=== PATIENT | male | born 1965 | race Caucasian/White ===

== ENCOUNTER → 2019-04-02 | Day surgery (SDC) | payer BC ==
[2019-03-31 11:38] LABS: BASOPHILS % 0.6 % (0.0-1.0); EOSINOPHILS # (AUTO) 0.1 (0.0-0.4); HEMATOCRIT 40.3 % (38.2-49.6); HEMOGLOBIN 12.6 g/dL (14.0-18.0); LYMPHOCYTES # (AUTO) 2.5 (1.0-3.2); LYMPHOCYTES % 34.3 % (18.0-39.1); MEAN CORPUSCULAR HEMOGLOBIN 23.1 pg (28-32); MEAN CORPUSCULAR HGB CONC 31.3 g/dL (31-35); MEAN CORPUSCULAR VOLUME 73.8 fL (81-99); MONOCYTES # (AUTO) 0.7 (0.2-0.8); MONOCYTES % 9.5 % (4.4-11.3); NEUTROPHILS # (AUTO) 3.9 (2.1-6.9); NEUTROPHILS % 54.3 % (38.7-80.0); PLATELET COUNT 313 x10e3/uL (140-360); RED BLOOD COUNT 5.46 x10e6/uL (4.3-5.7); RED CELL DISTRIBUTION WIDTH 20.3 % (11.7-14.4)
[2019-03-31 11:58] LABS: BLOOD UREA NITROGEN 22 mg/dL (7-26); BUN/CREATININE RATIO 22 (6-25); CALCIUM 9.7 mg/dL (8.4-10.2); CARBON DIOXIDE 25 mmol/L (22-29); CHLORIDE 101 mmol/L (98-107); CREATININE, SERUM 1.02 mg/dL (0.72-1.25); EST GLOMERULAR FILTRATION RATE > 60 ML/MIN (60-); GLUCOSE 92 mg/dL (74-118); SODIUM 138 mmol/L (136-145)
--- NOTE | 2019-03-31 12:35 | Diagnostic Imaging Report ---
EXAMINATION: CHEST 2 VIEWS INDICATION: Pre-operative COMPARISON: None FINDINGS: LINES/TUBES:None LUNGS:The lungs are well-inflated. No focal consolidation or pulmonary edema. PLEURA:No pleural effusion or pneumothorax. MEDIASTINUM:The cardiomediastinal silhouette appears normal in size and shape. BONES/SOFT TISSUES:No acute osseous injury. ABDOMEN:No free air under the diaphragm. IMPRESSION: No focal pneumonia or pulmonary edema. Signed by: Dada Thacker MD on 03/31/2019 12:31 PM
[~2019-04-02] MED LIST: ACETAMINOPHEN 1000 MG/100 ML IV ONE; BENICAR HCT 201 EACH PO; BUPIVACAINE HCL 0.5% INJ 30 ML VIAL INJ ONE; CEFAZOLIN SOD 1 GM/NS 50ML 100 ML IV ONE; CYMBALTA20 MG PO; DEXAMETHASONE SOD PHOS INJ 4 MG/ML VIAL ONE; FENTANYL CITRATE/PF 100MCG/2 ML INJ ONE; KETOROLAC TROMETHAMINE 30 MG/ML VIAL ONE; LIDOCAINE HCL 2% LOCAL INJ 5 ML SDV VIAL INJ ONE; MEPERIDINE HCL INJ 25 MG/ML VIAL ONE; MIDAZOLAM HCL 2 MG/2 ML VIAL ONE; MUPIROCIN 2% OINT 22 GM TUBE ONE; ONDANSETRON HCL INJ 2MG/ML 2ML 2 MG/ML VIAL ONE; PRAVASTATIN SOD40 MG PO; PROPOFOL IV EMULSION 10 MG/ML 20 ML VIAL ONE; SEVOFLURANE INHAL SOLN 250 ML PEN BTL ONE; TESTOSTERONE5 GM SC
--- OUTSIDE RECORDS SUMMARY | 2019-04-02 06:25 | XMS REPORT ---
Author Author [facility] Address Unknown Phone Unavailable Care Team Providers Care Associate Professor Of Engineering Name Role Phone MARCO BACH Unavailable Unavailable Problems This patient has no known problems. Allergies, Adverse Reactions, Alerts This patient has no known allergies or adverse reactions. Medications This patient has no known medications. Results Test Description Test Time Test Comments Text Results Atomic Results Result Comments CHEST 2 VIEWS 2019-03-31 12:30:00 [place] [id number] Patient Name: EULA CORONADO MR #: [id number] : 1965 Age/Sex: 53/M Req #: [id number] [facility] Physician: Ordered by: MARCO BACH DPM Report #: [id number] Location: OR Room/Bed: Procedure: [id number] DX/CHEST 2 VIEWS Exam Date: 03/31/19 Exam Time: 1125 REPORT STATUS: Signed EXAMINATION: CHEST 2 VIEWS INDICATION: Pre-operative COMPARISON: None FINDINGS: LINES/TUBES:None LUNGS:The lungs are well-inflated. No focal consolidation or pulmonary edema. PLEURA:No pleural effusion or pneumothorax. MEDIASTINUM:The cardiomediastinal silhouette appears normal in size and shape. BONES/SOFT TISSUES:No acute osseous injury. ABDOMEN:No free air under the diaphragm. IMPRESSION: No focal pneumonia or pulmonary edema. Signed by: Soco Hernandez MD on 03/31/2019 12:31 PM Dictated By: SOCO HERNANDEZ MD [id number] Transcribed By: ANN ORNELAS on 03/31/19 1231 COPY TO: MARCO BACH DPM
[2019-04-02 10:30] VITALS: BP 128/81
--- NOTE | 2019-04-02 15:45 | Operative Report ---
DATE OF PROCEDURE: 04/02/2019 SURGEON: Erwin Celeste DPM ROOM NUMBER: [facility] PREOPERATIVE DIAGNOSIS: Hallux abductovalgus deformity, left foot. POSTOPERATIVE DIAGNOSIS: Hallux abductovalgus deformity, left foot. TITLE OF THE OPERATION: Modified Gerry bunionectomy, left foot. PROCEDURE IN DETAIL: The patient was taken to the operating room in a mildly sedated state, placed on the operating table in supine position. Following induction of general anesthetic, the left lower extremity was elevated to 60 degrees to exsanguinate before inflating the pneumatic thigh tourniquet to 350 mm to create hemostasis. Left lower extremity was placed on the operating table prior to performing following procedure: Procedure #1: Modified Gerry bunionectomy of the left foot. An approximate 6 cm dorsal linear incision made overlying the dorsomedial aspect of the 1st metatarsophalangeal joint of the left foot. The incision was deepened via sharp and blunt dissection on the level of dorsal capsular structure. Care was taken to identify and retract all vital structures encountered. Head of the 1st metatarsal was remodeled utilizing oscillating saw. The conjoined tendon of the adductor hallucis muscle was identified. The dissection was then carried to the medial proximal surgical neck through and through V osteotomy was made and the head was shifted laterally on the more proximal segment impacted and stabilized with two cortical bone screws. A segment accomplished. An irrigation with saline was performed, deep closure with 3-0 Vicryl, subcutaneous closure with 4-0 Vicryl, skin closure with 4-0 nylon. The area was then blocked with 0.5 Marcaine, Decadron [place]. A release of the pneumatic tourniquet showed a normal hyperemic flush to all digits of the left foot. The patient left the operating room, vital signs are stable, in apparent satisfactory condition, having tolerated both anesthetic and the procedure very well. TORSTEN De La Rosa/DALE /[id number]
== END | disposition home or self-care (01) ==
LOC: OR 06:17
PROVIDERS: ATTEND Podiatrist Foot Surgery
DX: M20.12 Hallux valgus (acquired), left foot (principal); I10 Essential (primary) hypertension; E78.5 Hyperlipidemia, unspecified; F32.9 Major depressive disorder, single episode, unspecified; F41.9 Anxiety disorder, unspecified; Z01.810 Encounter for preprocedural cardiovascular examination; Z01.812 Encounter for preprocedural laboratory examination; Z01.818 Encounter for other preprocedural examination
CPT/HCPCS: 28296; 36415; 71046; 80048; 85025; 93005; C1713 ×2; J0131; J0690; J1100; J1885; J2001; J2250; J2405; J2704; J3010; L8699; 76000; J2175; Q4100

== ENCOUNTER → 2019-08-07 | Day surgery (SDC) | payer BC ==
[~2019-08-07] MED LIST changes: -ACETAMINOPHEN 1000 MG/100 ML IV ONE; -BUPIVACAINE HCL 0.5% INJ 30 ML VIAL INJ ONE; -CEFAZOLIN SOD 1 GM/NS 50ML 100 ML IV ONE; -DEXAMETHASONE SOD PHOS INJ 4 MG/ML VIAL ONE; +HYOSCYAMINE 0.125 MG TAB ONE; +IRON PO; +KETAMINE HCL INJ 50 MG/ML 10 ML VIAL ONE; -KETOROLAC TROMETHAMINE 30 MG/ML VIAL ONE; -LIDOCAINE HCL 2% LOCAL INJ 5 ML SDV VIAL INJ ONE; -MEPERIDINE HCL INJ 25 MG/ML VIAL ONE; -MUPIROCIN 2% OINT 22 GM TUBE ONE; -ONDANSETRON HCL INJ 2MG/ML 2ML 2 MG/ML VIAL ONE; -PROPOFOL IV EMULSION 10 MG/ML 20 ML VIAL ONE; +PROPOFOL IV EMULSION 10 MG/ML 50 ML VIAL ONE; -SEVOFLURANE INHAL SOLN 250 ML PEN BTL ONE
--- NOTE | 2019-08-08 01:40 | Operative Report ---
DATE OF PROCEDURE: 08/07/2019 SURGEON: Domingo Bell MD INDICATIONS FOR EGD: Heart burn. INDICATIONS FOR COLONOSCOPY: Anemia, guaiac-positive stools. MEDICATIONS: The patient was done under MAC, please see anesthesiologist's note. PROCEDURE IN DETAIL: With the patient in left lateral decubitus position, the flexible fiberoptic Olympus gastroscope was introduced into the esophagus under direct visualization without any difficulty. There was some patchy erythema noted in distal esophagus. The scope was then advanced with ease into the stomach. Mucosa overlying the antrum and the body revealed some patchy erythema, [id number] edema, biopsies were obtained and sent to stain for H pylori. The pylorus was of normal contour and shape was intubated with ease and the scope was advanced all the way to the second portion of the duodenum. Biopsies were obtained from the second portion as well as from the duodenal bulb to rule out sprue. The duodenal bulb was excessively nodular and additional biopsies were obtained. The scope was then withdrawn back into the stomach and retroflexed mucosa overlying the fundus and cardia appeared to be within normal limits. The scope was then straightened out, it was subsequently withdrawn patient tolerated procedure well. IMPRESSION: 1. Distal esophagitis, mild. 2. Gastritis, biopsied, biopsies sent to stain for H pylori. 3. Duodenal bulb excessively nodular, biopsied. 4. Rule out sprue. PLAN: Follow up histology. Initiate Protonix 40 mg one p.o. q.a.m. a.c. The patient was then turned around after adequate lubrication of the anal canal flexible fiberoptic Olympus, colonoscope was inserted into the rectum with ease and advanced all the way to the cecum. The scope was then withdrawn slowly. Mucosa overlying the cecum, ascending colon, transverse colon grossly appeared to be within normal limits. A minute aphthous ulcer was noted in the proximal descending colon that was biopsied. The mucosa overlying the sigmoid colon and the rectum revealed some patchy intense erythema and moderate edema and biopsies were obtained. The scope was then retroflexed into the distal rectum and moderate-sized internal hemorrhoids were noted none of which was actively bleeding. The scope was then straightened out it was subsequently withdrawn, patient tolerated procedure well. Impression: 1. Minute aphthous ulcer or minute aphthous like ulcer, proximal descending colon, biopsied. 2. Proctosigmoiditis, biopsies obtained. 3. Internal hemorrhoids none actively bleeding. Plan: Follow up histology. The patient might benefit from a followup colonoscopy in 5 to 10 years. MD BELLO Prince/DALE /[id number] cc: Benji Boyd DO
== END | disposition home or self-care (01) ==
LOC: OR 13:03
PROVIDERS: ATTEND Internal Medicine Gastroenterology
DX: D64.9 Anemia, unspecified (principal); K20.9 Esophagitis, unspecified; K29.50 Unspecified chronic gastritis without bleeding; K31.9 Disease of stomach and duodenum, unspecified; R12 Heartburn; K63.89 Other specified diseases of intestine; K29.80 Duodenitis without bleeding; K64.8 Other hemorrhoids; Q40.2 Other specified congenital malformations of stomach; Z01.810 Encounter for preprocedural cardiovascular examination; I10 Essential (primary) hypertension; E78.00 Pure hypercholesterolemia, unspecified; F32.9 Major depressive disorder, single episode, unspecified
CPT/HCPCS: 43239; 45380; 93005; J2250; J2704; J3010

== ENCOUNTER → 2021-02-21 | Outpatient (CLI) | payer BC ==
[~2021-02-21] MED LIST changes: -FENTANYL CITRATE/PF 100MCG/2 ML INJ ONE; -HYOSCYAMINE 0.125 MG TAB ONE; -KETAMINE HCL INJ 50 MG/ML 10 ML VIAL ONE; -MIDAZOLAM HCL 2 MG/2 ML VIAL ONE; -PROPOFOL IV EMULSION 10 MG/ML 50 ML VIAL ONE
== END ==
LOC: CT 11:39
PROVIDERS: ATTEND Family Medicine
DX: R42 Dizziness and giddiness (principal); G44.52 New daily persistent headache (NDPH); R20.0 Anesthesia of skin
CPT/HCPCS: 70450